=== PATIENT | male | born 1995 | race Caucasian/White ===

== ENCOUNTER 2017-08-11 14:13 | Observation (INO) | payer OTHER ==
[2017-08-11 14:24] VITALS: BMI 19.8
--- NOTE | 2017-08-11 15:48 | C.PDOC ---
History Of Present Illness 21-year-old male, presents to the emergency department with complaints of four day history of penile discomfort and pain with swelling. patient states he noticed gland of penis was swollen and painful. Pt is uncircumcised. Denies any trauma or discharge. Information obtained via aircraft designer due to language barrier. Time Seen by Provider: 08/11/17 14:47 Chief Complaint (Nursing): Groin Pain History Per: Patient History/Exam Limitations: no limitations Onset/Duration Of Symptoms: Days Current Symptoms Are (Timing): Still Present Past Medical History Reviewed: Historical Data, Nursing Documentation, Vital Signs Vital Signs: Last Vital Signs Temp 98 F 08/12/17 00:00 Pulse 58 L 08/12/17 00:00 Resp 20 08/12/17 00:00 BP 141/86 08/12/17 00:00 Pulse Ox 98 08/12/17 04:55 Family History: States: No Known Family Hx - Social History Hx Alcohol Use: No Hx Substance Use: No Review Of Systems Except As Marked, All Systems Reviewed And Found Negative. Constitutional: Negative for: Fever, Chills Respiratory: Negative for: Shortness of Breath Gastrointestinal: Negative for: Nausea, Vomiting, Abdominal Pain Genitourinary: Positive for: Penile Pain, Other (Paraphimosis). Negative for: Dysuria, Frequency, Incontinence, Hematuria, Penile Discharge Skin: Negative for: Rash Neurological: Negative for: Weakness, Numbness, Headache, Dizziness Physical Exam - Physical Exam Appears: Non-toxic, No Acute Distress Skin: Normal Color, Warm, Dry, No Rash Head: Atraumatic, Normacephalic Eye(s): bilateral: Normal Inspection Nose: Normal Oral Mucosa: Moist Lips: Normal Appearing Neck: Normal ROM Chest: Symmetrical Cardiovascular: Rhythm Regular, No Murmur Respiratory: Normal Breath Sounds, No Accessory Muscle Use Gastrointestinal/Abdominal: Soft, No Tenderness Male Genital: Other (Paraphimosis, no necrosis, both testes descended, no cellulitic component. ) Extremity: Normal ROM, No Deformity, No Swelling Neurological/Psych: Oriented x3, Normal Speech ED Course And Treatment - Laboratory Results Result Diagrams: 08/11/17 16:51 08/11/17 17:37 O2 Sat by Pulse Oximetry: 98 Medical Decision Making Medical Decision Making: STAT call placed for Dr Sita Spain at 15:10, left voicemail. Pending call back. 15:30 Dr Spain called, states he is busy at this time, will return call. 1615 - case discussed with DR. Sita Spain and will admit to medical observation Dr. Ladi Pina notified and will admit to medical surgical floor. Patient is able to pass urine. Disposition Discussed With Dr.: Yohannes Pina Doctor Will See Patient In The: Hospital Counseled Patient/Family Regarding: Studies Performed, Diagnosis - Disposition Disposition: HOSPITALIZED Disposition Time: 16:57 Condition: FAIR - Clinical Impression Clinical Impression: Paraphimosis - Scribe Statement The provider has reviewed the documentation as recorded by the Scribe (Britt evans) All medical record entries made by the Scribe were at my direction and personally dictated by me. I have reviewed the chart and agree that the record accurately reflects my personal performance of the history, physical exam, medical decision making, and the department course for this patient. I have also personally directed, reviewed, and agree with the discharge instructions and disposition.
[2017-08-11 16:56] LABS: BASO % 0.4 % (0.0-2.0); EOS # 0.1 K/uL (0.0-0.7); HEMOGLOBIN 14.8 g/dL (12.0-18.0); LYMPH # 1.8 K/uL (1.0-4.3); LYMPH % 26.2 % (20.0-40.0); MEAN CELL VOLUME 91.6 fL (80.0-94.0); MEAN CORPUSCULAR HEMOGLOBIN 31.4 pg (27.0-31.0); MEAN CORPUSCULAR HGB CONC 34.2 g/dL (33.0-37.0); MEAN PLATELET VOLUME 9.3 fL (7.2-11.7); MONO # 0.4 K/uL (0.0-0.8); MONO % 6.5 % (0.0-10.0); NEUT # 4.6 K/uL (1.8-7.0); NEUT % 65.9 % (50.0-75.0); RBC 4.72 Mil/uL (4.40-5.90); WHITE BLOOD COUNT 6.9 K/uL (4.8-10.8)
[2017-08-11 17:04] LABS: INR 1.1; PROTHROMBIN TIME 11.5 SECONDS (9.7-12.2)
[2017-08-11 17:59] LABS: ALB/GLOB RATIO 1.5 (1.0-2.1); ALBUMIN 4.4 g/dL (3.5-5.0); ALT/SGPT 27 U/L (21-72); AST/SGOT 24 U/L (17-59); BLOOD UREA NITROGEN 9 mg/dL (9-20); CALCIUM 9.4 mg/dl (8.6-10.4); GFR AFRICAN-AMERICAN > 60; GFR NON-AFRICAN AMERICAN > 60
--- NOTE | 2017-08-11 18:07 | CP.PCM.HP ---
History of Present Illness - History of Present Illness History of Present Illness: Stephend Heel Layer Alyx Vitoroni ([facility]) CC: Penile Pain HPI: Patient is a 21 year old male with no past medical history who presents to the ED with his firosario with complete of penile swelling and redness for the past 3-4 days. Patient reports associated symptoms of subjective fever, chills but denies any trauma, injury, nausea, vomiting, chest pain, palpitations, urinary difficulties, penile discharge, hematuria or penile rash. Patient was last sexual active Wednesday night and Wednesday morning. Patient is uncircumcised. Patient states that he bought a topical ointment ( cannot recall the name of the ointment) that he has been using since Wednesday. PMHx: Denies PSHx: Denies FHx: Denies Medications: Denies Allergies: Denies Social Hx: lives with micaela. Unemployed. Admits to 2 yrs of tobacco use (7-8 cigarretes per day), Occasional ETOH use and denies illicit drug use. Full code Jian Muñoz- [phone] Present on Admission - Present on Admission Any Indicators Present on Admission: No Review of Systems - Constitutional Constitutional: Chills, Fever. absent: Fatigue, Frequent Falls - EENT Eyes: absent: Blurred Vision, Change in Vision Ears: absent: Ear Discharge, Dizziness - Cardiovascular Cardiovascular: absent: Chest Pain, Chest Pain at Rest, Claudication, Diaphoresis, Dyspnea, Syncope - Respiratory Respiratory: absent: Dyspnea, Dyspnea on Exertion - Gastrointestinal Gastrointestinal: absent: Abdominal Pain, Nausea, Vomiting - Genitourinary Genitourinary: absent: Change in Urinary Stream, Difficulty Urinating, Dysuria, Flank Pain, Hematuria, Pyuria, Urinary Incontinence, Urinary Frequency - Reproductive: Male Reproductive:Male: Dyspareunia Additional comments: Swelling of the foreskin - Musculoskeletal Musculoskeletal: absent: Numbness, Tingling - Neurological Neurological: absent: Dizziness - Endocrine Endocrine: absent: Fatigue, Palpitations Past Patient History - Past Social History Smoking Status: Never Smoked - PSYCHIATRIC Hx Substance Use: No - SURGICAL HISTORY Hx Surgeries: No - ANESTHESIA Hx Anesthesia: No Meds Allergies/Adverse Reactions: Allergies Allergy/AdvReac Type Severity Reaction Status Date / Time No Known Allergies Allergy Verified 08/11/17 14:23 Physical Exam - Constitutional Appears: No Acute Distress - Head Exam Head Exam: ATRAUMATIC, NORMAL INSPECTION - Eye Exam Eye Exam: EOMI, Normal appearance - ENT Exam ENT Exam: Mucous Membranes Moist - Respiratory Exam Respiratory Exam: Clear to Auscultation Bilateral, NORMAL BREATHING PATTERN. absent: Prolonged Expiratory Phase, Rhonchi, Wheezes, Respiratory Distress - Cardiovascular Exam Cardiovascular Exam: REGULAR RHYTHM, +S1, +S2. absent: Systolic Murmur - GI/Abdominal Exam GI & Abdominal Exam: Normal Bowel Sounds, Soft. absent: Tenderness - Exam Exam: absent: Circumcision, Testicular Tenderness, Uretheral Discharge Additional comments: Foreskin swelling and tender to palpation - Extremities Exam Extremities exam: Positive for: normal inspection. Negative for: calf tenderness, full ROM, joint swelling, pedal edema, tenderness - Back Exam Back exam: NORMAL INSPECTION. absent: CVA tenderness (L), CVA tenderness (R) - Neurological Exam Neurological exam: Alert, Oriented x3 - Psychiatric Exam Psychiatric exam: Normal Affect - Skin Skin Exam: Normal Color Results - Vital Signs Recent Vital Signs: Last Vital Signs Temp 98.7 F 08/11/17 17:32 Pulse 72 08/11/17 17:32 Resp 18 08/11/17 17:32 BP 132/74 08/11/17 17:32 Pulse Ox 99 08/11/17 17:32 - Labs Result Diagrams: 08/11/17 16:51 08/11/17 17:37 Labs: Laboratory Results - last 24 hr 08/11/17 08/11/17 08/11/17 16:31 16:51 16:51 WBC 6.9 RBC 4.72 Hgb 14.8 Hct 43.3 MCV 91.6 MCH 31.4 H MCHC 34.2 RDW 13.0 Plt Count 149 MPV 9.3 Neut % (Auto) 65.9 Lymph % (Auto) 26.2 Jay % (Auto) 6.5 Eos % (Auto) 1.0 Baso % (Auto) 0.4 Neut # (Auto) 4.6 Lymph # (Auto) 1.8 Jay # (Auto) 0.4 Eos # (Auto) 0.1 Baso # (Auto) 0.0 PT 11.5 INR 1.1 APTT 34 Sodium Potassium Chloride Carbon Dioxide Anion Gap BUN Creatinine Est GFR ( Amer) Est GFR (Non-Af Amer) Random Glucose Calcium Total Bilirubin AST ALT Alkaline Phosphatase Total Protein Albumin Globulin Albumin/Globulin Ratio Blood Type A POSITIVE Antibody Screen Negative 08/11/17 17:37 WBC RBC Hgb Hct MCV MCH MCHC RDW Plt Count MPV Neut % (Auto) Lymph % (Auto) Jay % (Auto) Eos % (Auto) Baso % (Auto) Neut # (Auto) Lymph # (Auto) Jay # (Auto) Eos # (Auto) Baso # (Auto) PT INR APTT Sodium 145 Potassium 4.3 Chloride 104 Carbon Dioxide 29 Anion Gap 16 BUN 9 Creatinine 0.7 L Est GFR ( Amer) > 60 Est GFR (Non-Af Amer) > 60 Random Glucose 95 Calcium 9.4 Total Bilirubin 0.5 AST 24 ALT 27 Alkaline Phosphatase 87 Total Protein 7.4 Albumin 4.4 Globulin 3.0 Albumin/Globulin Ratio 1.5 Blood Type Antibody Screen Assessment & Plan (1) Paraphimosis Assessment and Plan: and possibly Balanitis Urology consult, Dr. Sita Spain * Help appreciated Muciprocin top bid Ice pack Tylenol 650 PO q6h prn for pain Further management as per Dr. Spain Status: Acute (2) Prophylactic measure Assessment and Plan: GI: Not indicated DVT: SCDs All plans and management discussed with Dr. Willow Myers Status: Acute
[2017-08-12] MEDS ORDERED: Oxycodone/Acetaminophen 5/325 mg Tab PO STA (09:59)
[2017-08-12] MEDS ORDERED: Oxycodone/Acetaminophen 5/325 mg Tab PO PRN (10:00)
--- NOTE | 2017-08-12 10:54 | RAD ---
HISTORY: Periopertative clearance COMPARISON: No prior. FINDINGS: LUNGS: The lungs are well inflated and clear. PLEURA: No significant pleural effusion identified, no pneumothorax apparent. CARDIOVASCULAR: Normal. OSSEOUS STRUCTURES: No significant abnormalities. VISUALIZED UPPER ABDOMEN: Normal. OTHER FINDINGS: None. IMPRESSION: No active pulmonary disease.
--- NOTE | 2017-08-12 12:38 | CP.PCM.PN ---
<Barbara Jessica - Last Filed: 08/12/17 16:44> Subjective - Date & Time of Evaluation Date of Evaluation: 08/12/17 Time of Evaluation: 07:00 - Subjective Subjective: PGY2- Progress note for Dr. Myers Patient seen and examined at bedside and in no acute distress. Patient still having alot of pain in his penis especially to the touch. Patient admits to taking some natural medication (unknown name) to obtain an erection on Wednesday and then having sex, after which the pain and swelling started. Patient is able to urinate without any problems. Patient denies any fevers, chest pain, shortness of breath, abdominal pain, nausea, vomiting, diarrhea, or constipation. Objective - Vital Signs/Intake and Output Vital Signs (last 24 hours): Temp Pulse Resp BP Pulse Ox 98.1 F 55 L 20 122/81 97 08/12/17 08:04 08/12/17 08:04 08/12/17 08:04 08/12/17 08:04 08/12/17 08:04 Intake and Output: 08/12/17 08/12/17 06:59 18:59 Intake Total 490 Balance 490 - Medications Medications: Current Medications Mupirocin (Bactroban Ointment) 1 gm TOP BID FARRAH Last Admin: 08/12/17 10:16 Dose: 1 applic Oxycodone/Acetaminophen (Percocet 5/325 Mg Tab) 1 tab PO Q6H PRN PRN Reason: Pain, severe (8-10) Stop: 08/15/17 10:01 - Labs Labs: 08/11/17 16:51 08/11/17 17:37 PT 11.5 SECONDS (9.7-12.2) 08/11/17 16:31 INR 1.1 08/11/17 16:31 APTT 34 SECONDS (21-34) 08/11/17 16:31 - Additional Findings Additional findings: - Constitutional Appears: No Acute Distress - Head Exam Head Exam: ATRAUMATIC, NORMAL INSPECTION - Eye Exam Eye Exam: EOMI, Normal appearance - ENT Exam ENT Exam: Mucous Membranes Moist - Respiratory Exam Respiratory Exam: Clear to Auscultation Bilateral, NORMAL BREATHING PATTERN. absent: Prolonged Expiratory Phase, Rhonchi, Wheezes, Respiratory Distress - Cardiovascular Exam Cardiovascular Exam: REGULAR RHYTHM, +S1, +S2. absent: Systolic Murmur - GI/Abdominal Exam GI & Abdominal Exam: Normal Bowel Sounds, Soft. absent: Tenderness - Exam Exam: absent: Circumcision, Testicular Tenderness, Uretheral Discharge Additional comments: Foreskin retracted, penis erythematous and edematous, tender to palpation - Extremities Exam Extremities exam: Positive for: normal inspection. Negative for: calf tenderness, full ROM, joint swelling, pedal edema, tenderness - Back Exam Back exam: NORMAL INSPECTION. absent: CVA tenderness (L), CVA tenderness (R) - Neurological Exam Neurological exam: Alert, Oriented x3 - Psychiatric Exam Psychiatric exam: Normal Affect - Skin Skin Exam: Normal Color Assessment and Plan - Assessment and Plan (Free Text) Assessment: (1) Paraphimosis Assessment and Plan: Urology consult, Dr. Sita Spain * Help appreciated * for circumcision tomorrow * NPO after midnight Muciprocin top bid Ice pack Percocet 5/325 1 tab po q6h prn for severe pain Tylenol 650mg po q6h prn for moderate pain (2) Prophylactic measure Assessment and Plan: GI: Not indicated DVT: SCDs All plans and management discussed with Dr. Willow Myers <Tim Myers - Last Filed: 08/12/17 22:40> Objective - Vital Signs/Intake and Output Vital Signs (last 24 hours): Temp Pulse Resp BP Pulse Ox 98.7 F 59 L 20 110/75 99 08/12/17 15:30 08/12/17 15:30 08/12/17 15:30 08/12/17 15:30 08/12/17 21:00 Intake and Output: 08/12/17 08/13/17 18:59 06:59 Intake Total 300 Balance 300 - Medications Medications: Current Medications Acetaminophen (Tylenol 325mg Tab) 650 mg PO Q6 PRN PRN Reason: Pain, moderate (4-7) Last Admin: 08/12/17 21:34 Dose: 650 mg Mupirocin (Bactroban Ointment) 1 gm TOP BID FARRAH Last Admin: 08/12/17 17:19 Dose: 1 applic Oxycodone/Acetaminophen (Percocet 5/325 Mg Tab) 1 tab PO Q6H PRN PRN Reason: Pain, severe (8-10) Stop: 08/15/17 10:01 - Labs Labs: 08/11/17 16:51 08/11/17 17:37 PT 11.5 SECONDS (9.7-12.2) 08/11/17 16:31 INR 1.1 08/11/17 16:31 APTT 34 SECONDS (21-34) 08/11/17 16:31 Attending/Attestation - Attestation I have personally seen and examined this patient.: Yes I have fully participated in the care of the patient.: Yes I have reviewed all pertinent clinical information, including history, physical exam and plan: Yes Notes (Text): 08/12/17 22:37 Patient was seen and examined with resident Dr. Kathi Jessica. Exam, assessment and plan were gone over with Dr. Jessica. Spoke with Urologist Dr. Sita Spain and he has scheduled patient for circumcision for 8 AM 08/13/17. Explained at length multiple times to both patient and that they must follow up with Dr. Sita Spain after discharge to ensure that there is proper recovery. They expressed understanding and have agreed not to travel back to [place] until after recovery and clearance is given by Dr. Sita Spain. Tim Myers D.O.
--- NOTE | 2017-08-12 22:41 | CP.PCM.PCO ---
Physician Communication Note - Physician Communication Note Physician Communication Note: Please see above
[2017-08-13 06:03] LABS: BASO % 0.6 % (0.0-2.0); EOS # 0.2 K/uL (0.0-0.7); EOS % 2.8 % (0.0-4.0); HEMOGLOBIN 15.3 g/dL (12.0-18.0); LYMPH # 2.1 K/uL (1.0-4.3); LYMPH % 34.3 % (20.0-40.0); MEAN CELL VOLUME 91.9 fL (80.0-94.0); MEAN CORPUSCULAR HEMOGLOBIN 31.6 pg (27.0-31.0); MEAN CORPUSCULAR HGB CONC 34.4 g/dL (33.0-37.0); MEAN PLATELET VOLUME 9.3 fL (7.2-11.7); MONO # 0.4 K/uL (0.0-0.8); MONO % 6.8 % (0.0-10.0); NEUT # 3.4 K/uL (1.8-7.0); NEUT % 55.5 % (50.0-75.0); RBC 4.83 Mil/uL (4.40-5.90); RED CELL DISTRIBUTION WIDTH 12.8 % (11.5-14.5); WHITE BLOOD COUNT 6.1 K/uL (4.8-10.8)
[2017-08-13 06:40] LABS: ALB/GLOB RATIO 1.5 (1.0-2.1); ALBUMIN 4.2 g/dL (3.5-5.0); ALT/SGPT 25 U/L (21-72); AST/SGOT 19 U/L (17-59); BLOOD UREA NITROGEN 9 mg/dL (9-20); CALCIUM 9.4 mg/dl (8.6-10.4); GFR AFRICAN-AMERICAN > 60; GFR NON-AFRICAN AMERICAN > 60
[2017-08-13] MEDS ORDERED: Dextrose 5%/0.45% NS 1,000 ML IV SCH (09:30)
[2017-08-13] MEDS ORDERED: Oxycodone/Acetaminophen 5/325 mg Tab PO PRN (12:00)
[2017-08-13] MEDS ORDERED: Propofol 10 mg/ml Inj (20 ML) ONE (16:34)
--- NOTE | 2017-08-13 16:34 | CP.PCM.DIS ---
<Barbara Jessica - Last Filed: 08/13/17 16:42> Provider - Provider Date of Admission: 08/11/17 16:55 Attending physician: Yohannes Pina DO Consults: Urology: Grabiel Time Spent in preparation of Discharge (in minutes): 35 Diagnosis - Discharge Diagnosis (1) Paraphimosis Status: Acute Hospital Course - Lab Results Lab Results: Most Recent Lab Values WBC 6.1 K/uL (4.8-10.8) 08/13/17 06:00 RBC 4.83 Mil/uL (4.40-5.90) 08/13/17 06:00 Hgb 15.3 g/dL (12.0-18.0) 08/13/17 06:00 Hct 44.4 % (35.0-51.0) 08/13/17 06:00 MCV 91.9 fL (80.0-94.0) 08/13/17 06:00 MCH 31.6 pg (27.0-31.0) H 08/13/17 06:00 MCHC 34.4 g/dL (33.0-37.0) 08/13/17 06:00 RDW 12.8 % (11.5-14.5) 08/13/17 06:00 Plt Count 135 K/uL (130-400) 08/13/17 06:00 MPV 9.3 fL (7.2-11.7) 08/13/17 06:00 Neut % (Auto) 55.5 % (50.0-75.0) 08/13/17 06:00 Lymph % (Auto) 34.3 % (20.0-40.0) 08/13/17 06:00 Emanuel % (Auto) 6.8 % (0.0-10.0) 08/13/17 06:00 Eos % (Auto) 2.8 % (0.0-4.0) 08/13/17 06:00 Baso % (Auto) 0.6 % (0.0-2.0) 08/13/17 06:00 Neut # (Auto) 3.4 K/uL (1.8-7.0) 08/13/17 06:00 Lymph # (Auto) 2.1 K/uL (1.0-4.3) 08/13/17 06:00 Emanuel # (Auto) 0.4 K/uL (0.0-0.8) 08/13/17 06:00 Eos # (Auto) 0.2 K/uL (0.0-0.7) 08/13/17 06:00 Baso # (Auto) 0.0 K/uL (0.0-0.2) 08/13/17 06:00 PT 11.5 SECONDS (9.7-12.2) 08/11/17 16:31 INR 1.1 08/11/17 16:31 APTT 34 SECONDS (21-34) 08/11/17 16:31 Sodium 144 mmol/L (132-148) 08/13/17 06:00 Potassium 3.9 mmol/L (3.6-5.2) 08/13/17 06:00 Chloride 104 mmol/L (98-107) 08/13/17 06:00 Carbon Dioxide 27 mmol/L (22-30) 08/13/17 06:00 Anion Gap 17 (10-20) 08/13/17 06:00 BUN 9 mg/dL (9-20) 08/13/17 06:00 Creatinine 0.7 mg/dL (0.8-1.5) L 08/13/17 06:00 Est GFR ( Amer) > 60 08/13/17 06:00 Est GFR (Non-Af Amer) > 60 08/13/17 06:00 Random Glucose 106 mg/dL (75-110) 08/13/17 06:00 Calcium 9.4 mg/dl (8.6-10.4) 08/13/17 06:00 Total Bilirubin 0.8 mg/dL (0.2-1.3) 08/13/17 06:00 AST 19 U/L (17-59) 08/13/17 06:00 ALT 25 U/L (21-72) 08/13/17 06:00 Alkaline Phosphatase 86 U/L (38-126) 08/13/17 06:00 Total Protein 6.9 g/dL (6.3-8.3) 08/13/17 06:00 Albumin 4.2 g/dL (3.5-5.0) 08/13/17 06:00 Globulin 2.7 gm/dL (2.2-3.9) 08/13/17 06:00 Albumin/Globulin Ratio 1.5 (1.0-2.1) 08/13/17 06:00 Blood Type A POSITIVE 08/11/17 16:51 Antibody Screen Negative 08/11/17 16:51 - Hospital Course Hospital Course: Patient was admited for paraphimosis post taking "some natural medication" to obtain an erection on Wednesday evening. Urology wasconsulted. Mupirocin 2%TOP BID was prescribed on 08/11. Patient was in severe pain (8-10/10) and distressed. Ice packs were given. Acetaminophen 650mg PO q6 PRN was given 08/12. Patient had minimal relief and was instead started on Oxycodone/Acetaminophen5/325 mg tab PO Q6H PRN on 08/12. Patient was still in pain and prescribed Toradol 30mg IV STAT instead of Percocet, which also did not relieve patient's pain. Morphine 2mg IV Q4 PRN was prescribed on 08/13 instead of Toradol. Patient experienced less pain. Patient was taken to surgery to undergo circumcision on 08/13. Patient will follow up with Dr. Spain oupatient. This is a summary of hospital stay. Please see chart for additional information. Discharge Exam - Head Exam Head Exam: ATRAUMATIC, NORMAL INSPECTION, NORMOCEPHALIC - Eye Exam Eye Exam: EOMI, Normal appearance - Respiratory Exam Respiratory Exam: Clear to PA & Lateral, NORMAL BREATHING PATTERN, UNREMARKABLE - Cardiovascular Exam Cardiovascular Exam: REGULAR RHYTHM, RRR, +S1, +S2 - Neurological Exam Neurological exam: Alert, Oriented x3 - Psychiatric Exam Psychiatric exam: Normal Affect, Normal Mood - Skin Skin Exam: Intact, Normal Color, Warm Discharge Plan - Discharge Medications Prescriptions: Acetaminophen/Codeine [Tylenol/Codeine 300 MG/30 MG] 1 tab PO Q6H #15 tab Cephalexin [cephalexin] 500 mg PO QID 3 Days #12 cap - Follow Up Plan Condition: FAIR Disposition: HOME/ ROUTINE Instructions: Circumcision, Adult Male (DC) Additional Instructions: Patient stable for discharge. Patient needs to follow up with Dr. Spain in his office this Wednesday at 9:30AM. Please do not touch the bandage, Dr Spain will remove the bandage this Wednesday in his office. You will be given scripts for the followings medications: 1. Tylenol/Codeine 300mg/30mg take 1 tablet if you have severe pain, take 1 tablet every 6 hours 2. cephalexin 500mg take 1 tablet every 6 hours for a total of 3 days Patient should come back to the Emergency Room if his pain increases or he has fevers. Referrals: Sajan Spain MD [Staff Provider] - <Jorge A Crandall - Last Filed: 08/15/17 08:30> Provider - Provider Date of Admission: 08/11/17 16:55 Attending physician: Yohannes Pina DO Hospital Course - Lab Results Lab Results: Most Recent Lab Values WBC 6.1 K/uL (4.8-10.8) 08/13/17 06:00 RBC 4.83 Mil/uL (4.40-5.90) 08/13/17 06:00 Hgb 15.3 g/dL (12.0-18.0) 08/13/17 06:00 Hct 44.4 % (35.0-51.0) 08/13/17 06:00 MCV 91.9 fL (80.0-94.0) 08/13/17 06:00 MCH 31.6 pg (27.0-31.0) H 08/13/17 06:00 MCHC 34.4 g/dL (33.0-37.0) 08/13/17 06:00 RDW 12.8 % (11.5-14.5) 08/13/17 06:00 Plt Count 135 K/uL (130-400) 08/13/17 06:00 MPV 9.3 fL (7.2-11.7) 08/13/17 06:00 Neut % (Auto) 55.5 % (50.0-75.0) 08/13/17 06:00 Lymph % (Auto) 34.3 % (20.0-40.0) 08/13/17 06:00 Emanuel % (Auto) 6.8 % (0.0-10.0) 08/13/17 06:00 Eos % (Auto) 2.8 % (0.0-4.0) 08/13/17 06:00 Baso % (Auto) 0.6 % (0.0-2.0) 08/13/17 06:00 Neut # (Auto) 3.4 K/uL (1.8-7.0) 08/13/17 06:00 Lymph # (Auto) 2.1 K/uL (1.0-4.3) 08/13/17 06:00 Emanuel # (Auto) 0.4 K/uL (0.0-0.8) 08/13/17 06:00 Eos # (Auto) 0.2 K/uL (0.0-0.7) 08/13/17 06:00 Baso # (Auto) 0.0 K/uL (0.0-0.2) 08/13/17 06:00 PT 11.5 SECONDS (9.7-12.2) 08/11/17 16:31 INR 1.1 08/11/17 16:31 APTT 34 SECONDS (21-34) 08/11/17 16:31 Sodium 144 mmol/L (132-148) 08/13/17 06:00 Potassium 3.9 mmol/L (3.6-5.2) 08/13/17 06:00 Chloride 104 mmol/L (98-107) 08/13/17 06:00 Carbon Dioxide 27 mmol/L (22-30) 08/13/17 06:00 Anion Gap 17 (10-20) 08/13/17 06:00 BUN 9 mg/dL (9-20) 08/13/17 06:00 Creatinine 0.7 mg/dL (0.8-1.5) L 08/13/17 06:00 Est GFR ( Amer) > 60 08/13/17 06:00 Est GFR (Non-Af Amer) > 60 08/13/17 06:00 Random Glucose 106 mg/dL (75-110) 08/13/17 06:00 Calcium 9.4 mg/dl (8.6-10.4) 08/13/17 06:00 Total Bilirubin 0.8 mg/dL (0.2-1.3) 08/13/17 06:00 AST 19 U/L (17-59) 08/13/17 06:00 ALT 25 U/L (21-72) 08/13/17 06:00 Alkaline Phosphatase 86 U/L (38-126) 08/13/17 06:00 Total Protein 6.9 g/dL (6.3-8.3) 08/13/17 06:00 Albumin 4.2 g/dL (3.5-5.0) 08/13/17 06:00 Globulin 2.7 gm/dL (2.2-3.9) 08/13/17 06:00 Albumin/Globulin Ratio 1.5 (1.0-2.1) 08/13/17 06:00 Blood Type A POSITIVE 08/11/17 16:51 Antibody Screen Negative 08/11/17 16:51 Attending/Attestation - Attestation I have personally seen and examined this patient.: Yes I have fully participated in the care of the patient.: Yes I have reviewed all pertinent clinical information, including history, physical exam and plan: Yes Notes (Text): Patient was discharged after surgery as recommended by Dr Spain.Recommended to follow DR Spain as an out patient
[2017-08-13] MEDS ORDERED: ceFAZolin 1 gm FROZEN Premix 1 GM/50 ML ML IVPB ONE (16:46)
[2017-08-13] MEDS ORDERED: Lactated Ringer's 1,000 ML IV SCH (17:45)
[2017-08-13 18:37] VITALS: BP 123/77; O2SAT 100
[2017-08-13 19:16] VITALS: PULSE 86; RESP 13; TEMP 97.5
--- NOTE | 2017-08-22 20:12 | PN ---
DATE: 08/13/2017 See the consultation note on 08/12/2017. It is currently about 8:30 a.m. The patient was admitted 08/11/2017 with paraphimosis. We made arrangements for this morning as a first case to do a circumcision. For various scheduled reasons, the operating room is not currently available. At this point, I am going to delay the procedure to later this afternoon. I explained to the patient and his girlfriend , fairly disappointed. While I am apologetic it is not procedure, and a very edematous venous. I want to make sure that the patient is okay before I do. I want to make sure that we are able to give the patient a proper attention. So, I apologize, but I am going to do it later today. In the interim, I am going to call the patient claim service representative office and ask if they can also go over with the patient and explain and go through in some details the consultation note from yesterday. Again, the girlfriend is correct in that he was admitted to the hospital on 08/11/2017 with some expectations that were not probably as the urologist explaining the procedure. Even now, I probably have to do the procedure. For various schedule, they just forgot to readjust the timing, and we will plan to do it later today, but in the meantime, I am going to reach out to the patient claim service representative, but I explained to him in detail we have to do the best job we can and we cannot wash this procedure. Further plans will follow. I did speak to the patient presentative and they did reach out to patient. Jadiel Spain MD
--- NOTE | 2017-08-23 02:36 | OP ---
PROCEDURE DATE: 08/13/2017 UROLOGY OPERATIVE NOTE PREOPERATIVE DIAGNOSES: Severe paraphimosis, tremendous amount of penile edema. POSTOPERATIVE DIAGNOSES: Severe paraphimosis, tremendous amount of penile edema. PROCEDURE: Reduction of the paraphimosis and circumcision. COMPLICATIONS: There were no complications. BLOOD LOSS: Less than 25 mL. Determination of the procedure looks like a vague cosmetic results. There were no complications. Procedure went better than expected. INDICATIONS: See history and physical and consultations and various progress notes. Along the way but in brief, he is a pleasant gentleman who is here that he had paraphimosis for few days prior to presenting here hospital, came in with extremely edematous penile edema. After discussing options and making arrangement, he is here now with the above listed procedure for the circumcision. I have explained to the patient risks, benefits, and alternatives. I explained the risks of not doing the surgery. I explained the risks of doing the surgery. I explained the benefits as well. I also explained that there is somewhat difficult in a patient with the severe paraphimosis and severe edema, but we will do our best job. Hopefully, the patient looking at the final results. The results were terrific. What I have done is I put some pictures in the chart as well for future. DESCRIPTION OF PROCEDURE: After obtained informed consent, discussed option with the patient, risks, benefits and alternatives with the patient at length, the patient was prepped in the usual sterile fashion. Antibiotics are on use. We prepped the patient in the usual sterile fashion. It was extremely difficult to reduce all the edema and try to show the normal anatomy. So, we adducted accordingly, trying to adduct the skin marking, and so we had a good lining to the apparatus to the glans and the skin. We tried to reduce some of the edema. Once we did this, we were able to remove the penile edematous tissue. We achieved hemostasis. We were able to achieve hemostasis well. Further inspection of the anatomy is as follows. The patient was prepped in the usual sterile fashion. I discussed the options, risks, benefits, treatment alternatives with the patient in terms of circumcision with plans to reduce the foreskin further ,but after discussing these with the patient, we did not circumcision. After obtaining informed consent, the patient was placed on the table. Routine monitor was placed. Time-out was called to confirm the patient and positioning. We carefully, gently were able to reduce the edema very slowly, carefully. We could not get all edema, but we were able to normalize the anatomy enough that we were able to outline exactly where the foreskin was and where the chong was underneath and using the marking pen on top. Even with the penile edema that is present, we were able to use the marking pen and outline our chong. Once we did it, we did a sort of modified sleeve technique and removed the foreskin. We adjusted accordingly. We lifted the glans. Everything was great. Again, there is still some penile edema. We now achieved hemostasis well. Then, we were able to reapproximate the distal and proximal portions of the skin. Around the frenulum area, we were able to make a nice V stitch. It looks like its point of the median raphe very well. We achieved good hemostasis and a nice closure. We further examined it and we see the pictures in the chart. It looks great. We then applied a dry sterile dressing with a wrapping. Again, my concern is about bleeding with so much edematous tissue. He seemed to be okay at this point. We applied a dry sterile dressing and wrapped with a wrap and Coban. The patient tolerated the procedure well without complication. Jadiel Spain MD
--- NOTE | 2017-08-23 06:33 | CON ---
DATE: 08/12/2017 UROLOGY CONSULTATION HISTORY OF PRESENT ILLNESS: Mr. Myers is admitted to the hospital with severe paraphimosis. History is from the chart and from the patient and a friend later, very pleasant young gentlemen who presents after 4-5 days of he has taking some medications to enhance sexual activity over the counter. He then developed a paraphimosis where the skin would not go back and hopefully that will get better. He presented yesterday to the emergency room. At that point, I spoke to the emergency room doctor who is Dr. Stewrat who did take a picture on the patient and at the time and still now the patient is voiding fine but has some discomfort in his penis. At that time I spoke to Dr. Stewart, I recommended then he come and see me in the office that as long he is urinating and he is not septic, and there is no evidence of ischemia and with that picture, it does not look like something we can do that in 4-5 days. Thus, we should have the patient to come to the office and make a recommendation to have most likely circumcision. Although sometimes, we are able to do with anesthesia and exam under anesthesia, but exam under anesthesia sometimes can reduce the foreskin. We explained that the patient can be discharged home and then seen actually in the office and then we will work on further plan. We also had the explanation that if something worse takes place as he cannot urinate or if there is any skin color changes, or any other warning signs of fever, bleeding, etc., he should return to the ER. Subsequently, the patient has been admitted to Dr. Pina, the hospitalist, according to Dr. Myers and with the instruction that the patient is having a circumcision today 08/12/2017. So as mentioned that the history from the family at this point and from the girlfriend, the patient was given instruction from the ER doctor from Dr. Stewart that it was once that of circumcision. I am leaving the patient now with consultation and the plan will be below. I am going to make arrangements but now deferred further treatment. The patient has no other significant medical problems with UTIs of dysuria. This is the first time it happened to him. He is sexually active. He is actually in the room currently with a fiancee that to be in about a year. He is of background, but the wedding actually is going to be in this country. PAST MEDICAL AND SURGICAL HISTORY: Is essentially negative. No history of diabetes and surgical history. SOCIAL HISTORY: Social phillips, again as mentioned above. He has a girlfriend, getting in a year. Otherwise unremarkable history. A very important social note, he is traveling out of the state next week (we are going to ask him to see him if he can delay that before we get involved with any surgical procedure). REVIEW OF SYSTEMS: Listed above. No weight loss, chest pain, or shortness of breath. He denies event. MEDICATIONS: Actually none. In the hospital, he takes some analgesics. ALLERGIES: NONE. PHYSICAL EXAMINATION: GENERAL: A well-nourished male in no apparent distress. He is currently resting comfortably in [place]. His girlfriend is sitting down on the bed with him. LUNGS: Clear. HEART: Normal S1 and S2. ABDOMEN: Overall soft. Nontender. GENITOURINARY: No real gross distention. No CVA tenderness. He has a normally developed male phallus. I have the pictures of the extremely edematous paraphimosis noted. Difficult to find any bleeding. It is uncomfortable for him to get me to touch it. He had a meatus at midline. The median raphe and are all within normal limits. The meatus looks in good location. No testicular masses. The rectal exam deferred. LABORATORY DATA: See the chart. It is relatively within normal limits. DIAGNOSIS: Paraphimosis. PLAN: The plan is as follows. I discussed the options with the patient and with the girlfriend. I did point I told him that we could try to reduce it but it has really been going on now for a longtime before he came to the hospital about four days. At that time, it is unlikely to be able to reduce, we could try but the success rate may not be perfect. We actually discussed the now with the patient that the patient would prefer to have a circumcision and just be finished with the problem. So, we next discussed the timing. We are going to make arrangement for tomorrow morning for 7:30. We will keep him n.p.o. after midnight and make it as an emergency add-on for circumcision. I explained to the patient the risks and benefits. I explained the risks of not doing surgery. I explained circulation issues. I explained the benefits of doing surgery. All of these things are explained in great detail and expected outcome. I did explain that when it is edematous, it is little more difficult than the average circumcision, but we should be able to get a good cosmetic result. Of note, I apologized that somebody had told him that even got him a circumcision. We will address it further going forward in terms of clarity for me after having seen the picture yesterday. I would clear the patient will to be managed as an outpatient urgently but as an outpatient. But it appears both from Dr. Tim Myers, the hospitalist that he was told to Dr. Pina that the patient was being admitted because he is getting a circumcision on the next day on 08/12/2018. He was admitted last night on 08/11/2017. He was given the instruction. The patient apparently wants to return to the doctor in the ER that if he has gotten circumcision. We will address it in the future. But in the meantime, we will make arrangement as quickly as possible. In the interim, the patient will be given some analgesics as required. Further plans will follow. Jadiel Spain MD
== END 2017-08-13 21:00 | disposition home or self-care (01) ==
LOC: C.ER 14:13 → C.9E 16:55 → C.3T 17:21
PROVIDERS: ADMIT Hospitalist; ATTEND Hospitalist
DX: N47.2 Paraphimosis (principal); F17.210 Nicotine dependence, cigarettes, uncomplicated
CPT/HCPCS: 36415; 54161; 71045; 80053; 85025; 85610; 85730; 86850; 86900; 88304; 96374; 99283; G0378; J0690; J1885; J2001; J2704; J3010; J7042